=== PATIENT | male | born 1960 | race Caucasian/White ===

== ENCOUNTER 2019-01-22 11:52 | Emergency (ER) | payer OTHER ==
[~2019-01-22] VITALS: Ht 170.2 cm; Wt 70.8 kg
[2019-01-22] MEDS ORDERED: PLAVIX75 MG PO (12:15)
[2019-01-22] MEDS ORDERED: BACLOFEN10 MG PO (12:17)
[2019-01-22] MEDS ORDERED: NEURONTIN300 MG PO (12:17)
== END 2019-01-22 15:55 | disposition home or self-care (01) ==
LOC: ER 11:52
DX: L53.8 Other specified erythematous conditions (principal)